=== PATIENT | male | born 1950 | race Caucasian/White ===

== ENCOUNTER 2019-03-18 06:51 | Outpatient (RCR) | payer SELFPAY | END 2019-03-18 23:59 | disposition home or self-care (01) | LOC: ANHAUDIO 06:51 | PROVIDERS: Visit Provider Family Medicine | DX: Z46.1 Encounter for fitting and adjustment of hearing aid (principal) | CPT/HCPCS: 99199 ==

== ENCOUNTER 2020-04-02 15:01 | Outpatient (RCR) | payer SELFPAY | END 2020-04-02 23:59 | disposition home or self-care (01) | LOC: ANHAUDIO 15:01 | PROVIDERS: PCP Family Medicine; Visit Provider Family Medicine | DX: Z46.1 Encounter for fitting and adjustment of hearing aid (principal) | CPT/HCPCS: 99199 ==

== ENCOUNTER → 2020-07-31 00:53 | Outpatient (CLI) | payer MEDICARE, SELFPAY ==
[2020-07-31 18:32] LABS: SARS-CoV-2 RNA PCR Negative
== END ==
PROVIDERS: PCP Family Medicine; Visit Provider Internal Medicine Gastroenterology
DX: Z01.812 Encounter for preprocedural laboratory examination (principal); Z20.822 Contact with and (suspected) exposure to COVID-19
CPT/HCPCS: C9803; U0003; U0005

== ENCOUNTER 2020-08-03 00:59 | Day surgery (SDC) | payer MEDICARE, SELFPAY ==
[2020-07-23 13:46] VITALS: BMI 35.9
[2020-08-03 07:55] VITALS: BP 153/100; PULSE 115; RESP 20; TEMP 36.4; O2SAT 99; BMI 34.4
--- NOTE | 2020-08-03 07:56 | WPDANESEPPF ---
Anes - Initial Pre Proc Eval Procedure: Operation Date: 08/03/20 09:00 Proposed Procedures p Screening Colonoscopy - Hans Hunter MD Date/Time: 08/03/20 07:56 Surgeon: Hans Hunter MD Pre Op Diagnosis: neoplasm screening Patient Data Age: 70 Gender: M Height: 6 ft Weight: 120 kg Allergies Allergy/AdvReac Type Severity Reaction Status Date / Time clarithromycin Allergy Severe HIVES Verified 08/03/20 07:53 Home Medications Medication Instructions Recorded Confirmed Type finasteride 5 mg tablet 5 mg PO DAILY 04/18/19 08/03/20 History omega-3 fatty acids 1,000 mg 1,000 mg PO BID 04/18/19 08/03/20 History capsule atorvastatin 20 mg tablet 20 mg PO DAILY #90 tablet 05/14/20 08/03/20 Rx losartan 100 1 tablet PO DAILY #90 tablet 07/09/20 08/03/20 Rx mg-hydrochlorothiazide 25 mg tablet metformin 500 mg PO BID 07/23/20 08/03/20 History Patient hx anesthesia problems: none Family hx anesthesia problems: none PMFSH Past Medical History Medical History Essential (primary) hypertension Metabolic syndrome Mixed hyperlipidemia Obesity, unspecified Type 2 diabetes mellitus without complications Surgical History Surgical History H/O vasectomy (~05/1989) Family History Family History Father Hypertension Family history of cardiovascular disease Cerebrovascular accident Grandparent Hypertension Family history of cardiovascular disease Cerebrovascular accident Mother Hypertension Cerebrovascular accident Family history of malignant neoplasm of breast in first degree relative Sibling Hypertension Family history of elevated blood lipids Family history of malignant neoplasm of breast in first degree relative Social History Social History Smoking packs per day: 1 Smoking cigarettes per day: 20.0 Years smoked: 20 Smoking pack-years: 20.00 Smoking status: Former smoker Tobacco type: cigarettes Smoking end date: 05/18/89 Alcohol intake: current Drinks per week: 6 Substance use: never Substance use type: does not use Living arrangements: with family Spiritual care concerns: No Anes - Eval Final PreProcedure Day of Procedure 08/03/20 07:56 Patient weight: obese Heart: regular rate and rhythm Lungs: decreased breath sounds Airway: Mallampati scale class II Neurological: alert and oriented Last oral intake: >/= 8 hours ASA classification: III Emergent: no Anesthetic plan: proceed Anesthesia type and monitoring: general GIVS and standard monitoring Informed Consent: The patient's anesthetic plan and its attendant risks and benefits were discussed with the patient/family/POA. Questions were solicited and answers provided to the satisfaction of the patient/family/POA.
[2020-08-03] MEDS: LACTATED RINGERS 1,000 ML 150 ML IV CONT (08:09)
[2020-08-03 08:11] LABS: Glucose Point of Care 206 (65-105)
--- NOTE | 2020-08-03 08:40 | PM.HPGS ---
History of Present Illness History of Present Illness Consent: Risks, benefits, and alternatives have been discussed and questions answered. Patient agrees to proceed with procedure. Chief complaint: neoplasm screening Narrative: Sebastien Bernstein is a 70 year old male Here for colon cancer screening Review of Systems Review of Systems: All systems reviewed & are unremarkable except as noted in HPI and below PMFSH Past Medical History Medical History Essential (primary) hypertension Metabolic syndrome Mixed hyperlipidemia Obesity, unspecified Type 2 diabetes mellitus without complications Surgical History Surgical History H/O vasectomy (~05/1989) Family History Family History Father Hypertension Family history of cardiovascular disease Cerebrovascular accident Grandparent Hypertension Family history of cardiovascular disease Cerebrovascular accident Mother Hypertension Cerebrovascular accident Family history of malignant neoplasm of breast in first degree relative Sibling Hypertension Family history of elevated blood lipids Family history of malignant neoplasm of breast in first degree relative Social History Social History Smoking packs per day: 1 Smoking cigarettes per day: 20.0 Years smoked: 20 Smoking pack-years: 20.00 Smoking status: Former smoker Tobacco type: cigarettes Smoking end date: 05/18/89 Alcohol intake: current Drinks per week: 6 Substance use: never Substance use type: does not use Living arrangements: with family Spiritual care concerns: No Meds Home Medications and Allergies Home Medications Medication Instructions Recorded Confirmed Type finasteride 5 mg tablet 5 mg PO DAILY 04/18/19 08/03/20 History omega-3 fatty acids 1,000 mg 1,000 mg PO BID 04/18/19 08/03/20 History capsule atorvastatin 20 mg tablet 20 mg PO DAILY #90 tablet 05/14/20 08/03/20 Rx losartan 100 1 tablet PO DAILY #90 tablet 07/09/20 08/03/20 Rx mg-hydrochlorothiazide 25 mg tablet metformin 500 mg PO BID 07/23/20 08/03/20 History Allergies Allergy/AdvReac Type Severity Reaction Status Date / Time clarithromycin Allergy Severe HIVES Verified 08/03/20 07:53 Vital Signs Vital Signs - 24 hr 08/03/20 07:55 Temperature 36.4 C Pulse Rate 115 H Respiratory Rate 20 Blood Pressure 153/100 H Pulse Oximetry 99 Exam Resp: Auscultation: clear to auscultation bilaterally Cardio: Rate: regular rate Rhythm: regular rhythm GI: GI Palp: Yes Soft to palpation and No Tenderness to palpation present (GI) Assessment and Plan Assessment and plan (1) Colon cancer screening: Code(s): Z12.11 - Encounter for screening for malignant neoplasm of colon Status: Acute Assessment and Plan: Colonoscopy with possible biopsy or polypectomy or cautery or injection of substances.
[2020-08-03 09:20] VITALS: BP 120/85; PULSE 104; RESP 22; O2SAT 96
[2020-08-03 09:30] VITALS: BP 116/81; PULSE 91; RESP 24; O2SAT 97
[2020-08-03 09:40] VITALS: BP 124/88; PULSE 96; RESP 22; O2SAT 97
== END 2020-08-03 10:04 | disposition home or self-care (01) ==
PROVIDERS: PCP Family Medicine; Visit Provider Internal Medicine Gastroenterology
PROC: 0DJD8ZZ Inspection of Lower Intestinal Tract, Via Natural or Artificial Opening Endoscopic (ICD-10-PCS; CPT 45378; principal; 2020-08-03 09:00)
DX: Z12.11 Encounter for screening for malignant neoplasm of colon (principal); D12.5 Benign neoplasm of sigmoid colon; K57.30 Diverticulosis of large intestine without perforation or abscess without bleeding; E78.2 Mixed hyperlipidemia; I10 Essential (primary) hypertension; E11.9 Type 2 diabetes mellitus without complications; Z79.84 Long term (current) use of oral hypoglycemic drugs; Z87.891 Personal history of nicotine dependence; E66.9 Obesity, unspecified; Z68.34 Body mass index [BMI] 34.0-34.9, adult
CPT/HCPCS: 45385; 82948; 88305; J2704; J7120

== ENCOUNTER 2021-02-25 08:26 | Outpatient (RCR) | payer MEDICARE, SELFPAY | END 2021-02-25 23:59 | disposition home or self-care (01) | LOC: ANHAUDIO 08:26 | PROVIDERS: PCP Family Medicine; Visit Provider Family Medicine | DX: Z46.1 Encounter for fitting and adjustment of hearing aid (principal) | CPT/HCPCS: 92593 ==

== ENCOUNTER 2021-04-18 08:03 | Outpatient (CLI) | payer MEDICARE, SELFPAY ==
--- NOTE | 2021-05-06 14:19 | WPDSLEEPSTUD ---
Sleep Study Date of Study: 04/18/21 <Leslie Bernstein DO - Last Filed: 05/06/21 14:51> Ordering Provider: Juancarlos Xiong MD <Leslie Bernstein DO - Last Filed: 05/06/21 14:51> Interpreting Physician: Leslie Bernstein DO <Leslie Bernstein, DO - Last Filed: 05/06/21 14:51> Sleep Study Type: Polysomnogram <Leslie Bernstein DO - Last Filed: 05/06/21 14:51> Height: 1.82 m <Leslie Bernstein DO - Last Filed: 05/06/21 14:51> Weight: 118.841 kg <Leslie Bernstein DO - Last Filed: 05/06/21 14:51> Body Mass Index: 36.0 <Leslie Bernstein DO - Last Filed: 05/06/21 14:51> Neck Circumference (inches): 19.5 <Leslie Bernstein DO - Last Filed: 05/06/21 14:51> [place]: 13 <Leslie Bernstein DO - Last Filed: 05/06/21 14:51> Reason for Sleep Study Snoring, unrefreshing sleep, daytime hypersomnia <Leslie Bernstein DO - Last Filed: 05/06/21 14:51> Sleep History Patient is a 71-year-old male with hypertension, type 2 diabetes, hyperlipidemia, benign prostatic hypertrophy and urinary incontinence that had a sleep study ordered by his primary due to unrefreshing sleep and daytime hypersomnia. the patient denies awakening from sleep short of breath. He rarely awakens at night with heartburn, belching or cough. He frequently snores loud enough that others complain. He occasionally has trouble sleeping when he has a cold. He denies waking gasping for air throughout the night. He denies having breathing problems at night observed by others. He rarely sweats excessively at night. He rarely notices heart palpitations or irregular heartbeats during the night. He frequently falls asleep during the day but never while driving. He rarely has trouble at work due to sleepiness. He rarely feels unable to move when waking up her falling asleep. He rarely experiences vivid dreamlike scenes upon awakening or falling asleep. He occasionally has nightmares. He rarely has thoughts racing through his mind. he occasionally feels sad or depressed as well as anxious. He denies noticing parts of his body jerk and kicking throughout the night. He denies having crawling and aching feelings in his legs as well as leg pain during the night. He denies grinding his teeth during sleep and awakening with morning jaw pain. He occasionally is bothered by pain during the day and is occasionally awakened by pain during the night. He occasionally wakes up feeling stiff in the morning. He rarely wakes with pain in the neck, spine and other joints. He goes to bed between 9 and 10:00 p.m. on weekdays and between 9 and 11:00 p.m. on weekends. He falls asleep within a few minutes. He awakens up to 5 times per night. When he awakens, he will fall back asleep or switch to his recliner. He can fall asleep within 10 minutes. He awakens at 6:00 a.m. on both weekdays and weekends. He will typically get between 6 and 10 hours of sleep per night. He will stay in bed for an hour after awakening. He currently lives with his . He does not consume any caffeinated beverages within 2 hours of bedtime. He does not engage in physical exercise before bedtime. He will read and watch television before falling asleep. He does take naps in the afternoon or the evening and they are refreshing. He drinks 5 caffeinated beverages per day. The patient quit smoking 30 years ago. He denies alcohol and recreational drug use. <Leslie Bernstein, - Last Filed: 05/06/21 14:51> [facility] Past Medical History Medical History: Medical History Essential (primary) hypertension Metabolic syndrome Mixed hyperlipidemia Obesity, unspecified Type 2 diabetes mellitus without complications <Leslie Bernstein DO - Last Filed: 05/06/21 14:51> Surgical History Surgical History: Surgical History (Reviewed 02/05/21 @ 09:32 by Ene Carballo, CM
[2021-05-06 14:36] VITALS: BMI 36.0
== END 2021-04-19 06:45 | disposition home or self-care (01) ==
LOC: ANHCSM 08:13
PROVIDERS: PCP Family Medicine; Visit Provider Otolaryngology
DX: G47.33 Obstructive sleep apnea (adult) (pediatric) (principal); R06.83 Snoring; R53.82 Chronic fatigue, unspecified
CPT/HCPCS: 95810

== ENCOUNTER 2021-05-31 08:18 | Outpatient (CLI) | payer MEDICARE, SELFPAY ==
--- NOTE | ~2021-05-31 | US_ITS ---
EXAMINATION: US right upper quadrant DATE: 05/31/2021 08:56 INDICATION: Abnormal levels of other serum enzymes. TECHNIQUE: Multiple grayscale and Doppler ultrasound images of the abdomen were obtained. COMPARISON: Ultrasound 04/25/2019, MRI 05/04/2014 FINDINGS: The visualized portions of the head, body, and tail of the pancreas are normal. There is di ffuse hepatic steatosis. There are 12 mm and 8 mm cysts in the liver. There is normal flow in main po rtal vein. The gallbladder is normal in size. No gallstones or gallbladder wall thickening. There was no sonographic Thacker sign. The common duct is normal and measures 3 mm. IMPRESSION: 1. Diffuse hepatic steatosis. Reviewed, dictated and finalized at location B. ACCOUNTANT
== END 2021-05-31 08:19 | disposition home or self-care (01) ==
LOC: ANHIMG 08:21
PROVIDERS: PCP Family Medicine; Visit Provider Family Medicine
DX: R74.8 Abnormal levels of other serum enzymes (principal); K76.0 Fatty (change of) liver, not elsewhere classified
CPT/HCPCS: 76705

== ENCOUNTER 2021-09-24 14:53 | Outpatient (RCR) | payer MEDICARE, SELFPAY | END 2021-09-24 23:59 | disposition home or self-care (01) | LOC: ANHAUDIO 14:53 | PROVIDERS: PCP Family Medicine; Visit Provider Family Medicine | DX: Z46.1 Encounter for fitting and adjustment of hearing aid (principal) | CPT/HCPCS: 99199 ==

== ENCOUNTER 2022-06-06 09:02 | Outpatient (CLI) | payer MEDICARE, SELFPAY ==
--- NOTE | 2022-06-06 09:04 | ECHO_ITS ---
Patient Info Name: Sebastien Bernstein Age: 72 years : 1950 Gender: Male Ht: 71 in Wt: 265 lbs BSA: 2.50 m2 HR: 72 bpm BP: 173 / 107 mmHg Technical Quality: Fair Exam Date: 06/06/2022 9:25 AM Exam Location: [facility] Patient Status: Outpatient Admit Date: 06/06/2022 Staff Ordering Physician: Kay Corcoran MD [employer]anch[employer] Sales Representative: Anna Oh RDCS Attending Provider: Kay Corcoran MD Referring Physician: Nilo BROWN; Exam Type: CA echo doppler color flow Study Info Indications R06.02 - Shortness of breath Complete two-dimensional, color flow and Doppler transthoracic echocardiogram is performed. Summary 1. Complete two-dimensional, color flow and Doppler transthoracic echocardiogram is performed. 2. Left ventricular chamber dimension is normal. 3. Left ventricular systolic function is normal, estimated at 60-65%. 4. There is mildly increased left ventricular wall thickness. 5. The left ventricular diastolic function is grade I diastolic dysfunction. 6. E/e' 10 is mildly elevated. 7. Global longitudinal strain is abnormal at -13.6%. 8. There is mild aortic valve sclerosis. 9. There is trace tricuspid valve regurgitation. 10. No pulmonary hypertension, estimated pulmonary arterial systolic pressure is 29 mmHg. Left Ventricle E/e' 10 is mildly elevated. Global longitudinal strain is abnormal at -13.6%. Left ventricular chamber dimension is normal. Left ventricular systolic function is normal, estimated at 60-65%. There is mildly increased left ventricular wall thickness. The left ventricular diastolic function is grade I diastolic dysfunction. Right Ventricle Right ventricular systolic function is normal and with normal TAPSE 2.1 cm. Right ventricular chamber dimension is normal. Left Atria Left atrial chamber dimension is normal. Right Atria Right atrial chamber dimension is normal. Aortic Valve The aortic valve is trileaflet. There is mild aortic valve sclerosis. There is no aortic valve stenosis. There is no aortic valve regurgitation. Pulmonic Valve There is no pulmonic regurgitation. Mitral Valve There is no mitral valve stenosis. There is no mitral valve regurgitation. Tricuspid Valve There is trace tricuspid valve regurgitation. No pulmonary hypertension, estimated pulmonary arterial systolic pressure is 29 mmHg. Pericardium/Pleural There is no pericardial effusion. Inferior Vena Cava Normal inferior vena cava with >50% collapse upon inspiration consistent with normal right atrial pressure, 5 mmHg. Aorta The aortic root size at the sinus of Valsalva is normal. Left Ventricular Outflow Tract Name Value Normal LVOT 2D LVOT Diameter 2.0 cm LVOT Doppler LVOT Peak Gradient 5 mmHg LVOT Mean Gradient 3 mmHg LVOT VTI 24 cm LVOT VTI/AV VTI Ratio 0.8 LVOT Stroke Volume 77 ml LVOT CO 5.6 l/min LVOT CI 2.3 l/min/m2 Pu
== END 2022-06-06 09:03 | disposition home or self-care (01) ==
LOC: ANHCARD 09:03
PROVIDERS: PCP Family Medicine; Visit Provider Family Medicine
DX: G47.33 Obstructive sleep apnea (adult) (pediatric) (principal); E11.9 Type 2 diabetes mellitus without complications; R06.02 Shortness of breath; Z86.16 Personal history of COVID-19; Z99.89 Dependence on other enabling machines and devices; I35.8 Other nonrheumatic aortic valve disorders; R93.1 Abnormal findings on diagnostic imaging of heart and coronary circulation
CPT/HCPCS: 93306

== ENCOUNTER 2022-07-10 14:00 | Outpatient (RCR) | payer MEDICARE, SELFPAY | END 2022-07-10 23:59 | disposition home or self-care (01) | LOC: ANHAUDIO 14:00 | PROVIDERS: PCP Family Medicine; Visit Provider Family Medicine | DX: Z46.1 Encounter for fitting and adjustment of hearing aid (principal) | CPT/HCPCS: 92593; V5267 ==

== ENCOUNTER 2022-07-29 07:54 | Outpatient (CLI) | payer MEDICARE, SELFPAY | END 2022-07-29 07:55 | disposition home or self-care (01) | LOC: ANHAUDIO 07:55 | PROVIDERS: PCP Family Medicine; Visit Provider Family Medicine | DX: H90.3 Sensorineural hearing loss, bilateral (principal) | CPT/HCPCS: 92557; 92567 ==

== ENCOUNTER 2023-02-12 07:00 | Outpatient (NON) | payer MEDICARE, SELFPAY | END 2023-02-12 07:01 | disposition home or self-care (01) | LOC: ANHLAB 02-13 09:40 | PROVIDERS: PCP Family Medicine; Visit Provider Family Medicine | DX: C44.529 Squamous cell carcinoma of skin of other part of trunk (principal) | CPT/HCPCS: 88305 ==

== ENCOUNTER 2023-07-30 11:50 | Outpatient (RCR) | payer MEDICARE, SELFPAY | END 2023-07-30 23:59 | disposition home or self-care (01) | LOC: ANHAUDIO 11:50 | PROVIDERS: PCP Family Medicine | DX: Z46.1 Encounter for fitting and adjustment of hearing aid (principal) | CPT/HCPCS: 92593 ==

== ENCOUNTER 2024-02-05 09:54 | Outpatient (RCR) | payer SELFPAY | END 2024-02-05 23:59 | disposition home or self-care (01) | LOC: ANHAUDIO 09:54 | PROVIDERS: PCP Family Medicine; Visit Provider Family Medicine | DX: Z46.1 Encounter for fitting and adjustment of hearing aid (principal) | CPT/HCPCS: 92593 ==

== ENCOUNTER 2025-03-02 12:41 | Outpatient (CLI) | payer MEDICARE, SELFPAY ==
--- NOTE | ~2025-03-02 | XR_ITS ---
EXAMINATION: XR knee LT 3V, 03/02/2025 13:10 CDT HISTORY: M25.562 - Pain in left knee COMPARISON: No comparisons available. Findings: No acute fracture or malalignment. Moderate to severe tricompartmental degenerative changes, small effusion Soft tissues unremarkable. Impression: No acute fracture or malalignment. Reviewed, dictated and finalized at location P. Impression: No acute fracture or malalignment.
== END 2025-03-02 12:42 | disposition home or self-care (01) ==
LOC: MICIMG 12:43
PROVIDERS: PCP Family Medicine; Visit Provider Student in an Organized Health Care Education/Training Program
DX: M25.562 Pain in left knee (principal)
CPT/HCPCS: 73562